=== PATIENT | male | born 1985 | race Caucasian/White ===

== ENCOUNTER → 2018-09-22 | Outpatient (CLI) | payer BC ==
--- NOTE | 2018-09-22 11:20 | CONS ---
Assessment/Plan Assessment/Plan Hospital Course (Demo Recall) 33-year-old male with anterior and anteromedial knee pain secondary to patellofemoral syndrome as well as likely a multilobulated ganglion cyst deep to the patella tendon. Advanced imaging does show that the cyst is quite impressive in size and number of septations. Given that the patient's symptoms are only when he kneels I would like to continue with conservative treatment. This will include steroid injection as well as physical therapy. If these both fail over the course of 3 months of treatment would likely repeat an MRI to see if a meniscus tear was in fact missed and potentially recommend surgery depending on symptoms and results. Plan: Submit authorization for right knee steroid injection and right knee physical therapy. Follow-up for right knee steroid injection. Consultation Date/Type/Reason Admit Date/Time Date of Consultation: Sep 22, 2018 Reason for Consultation Right knee pain Date/Time of Note DATE: 09/22/18 TIME: 11:05 Hx of Present Illness This is a 33-year-old male with a chief complaint of right knee pain. The pain began approximately 1 year ago. The patients pain is in the anterior and anteromedial aspect of the right knee. Pain is not radiating to the lower leg. The pain is rated as a 6/10 and is described as sharp and stabbing. Denies mechanical symptoms. Patient denies complaints of numbness or tingling. The pain is exacerbated by kneeling. Patient has no pain while walking or using stairs.. Pain is not relieved by NSAID's. Patient has been taking naproxen on a p.r.n. basis as well as using ice. Duration: One year Injury: No Walking tolerance: Unlimited Limp: No Support: No Swelling: Rarely Crepitation: No Instability: No Stairs: Uses normal Physical Therapy: No Injections: None NSAIDs: Naproxen Prior surgery: No Back pain: No Hip pain: No Risk of AVN : No Patient denies fever, chills, shortness of breath, chest pain, nausea/vomiting, constipation, diarrhea, numbness, and tingling. Past Medical History Medical History: no pertinent history Past Surgical History Past Surgical Hx: no surgical history Family History Significant Family History: no pertinent family hx Social History Alcohol Use: none Smoking Status: Never smoker Drug Use: none Exam/Review of Systems Exam Vitals Weight: 200 pound Height: 5 foot 8 inches Temperature: 98.2 Heart Rate: 99 Blood Pressure: 132/74 Respiratory Rate: 12 Exam General: Alert, oriented x3. No Acute Distress. Heart: Regular rate and rhythm. Lungs: No respiratory distress. No accessory muscle use. Musculoskeletal: Right Knee This is a well developed male who is alert, oriented times three and in no apparent distress. Skin is intact over the right knee as well as the lower extremity with no abrasions, lacerations, or ulcerations. Observation of the patient's gait reveals a non- antalgic gait with No thrust. Frontal plane alignment is neutral. There is mild pain on palpation over the anterior joint line under the patella tendon and the medial joint line. No joint effusion. Range of motion: 0 extension to approximately 140 degrees of flexion. Collateral ligament testing reveals no instability with varus or valgus stress at 0 and 30 degrees of flexion. Negative Leela's and negative posterior drawer. Neurovascularly intact with 5/5 EHL/tibialis anterior/gastroc. Sensation intact to light touch in a sural, saphenous, deep peroneal, superficial peroneal, medial and lateral plantar nerve distribution. Palpable, symmetric dorsalis pedis and posterior tibial pulses in both lower extremities. Hip examination normal. Imaging Imaging The patient received a standard set of films today that were personally reviewed. Imaging included a standing bilateral knee AP, PA flexion, merchant views and a dedicated lateral of the affected knee: There is neutral alignment of the knee. There is no loss of joint space in any compartment(s). 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 Mild patella marly. On the merchant view the patella is slightly subluxated laterally. No acute abnormalities. MRI of the right knee dated 07/30/2018 was personally reviewed. There is an impressive multilobulated with more than a dozen ganglionic cystic lesions in the anterior Hoffa fat pad just deep to the patella tendon. There is no discrete or obvious meniscus tear. Patellar tendon is intact. Cruciates are intact. Collateral ligaments are intact. There is no significant joint effusion. DANIELITO JOHNS MD Sep 22, 2018 11:18
--- NOTE | 2018-09-22 12:23 | RADRPT ---
PROCEDURE: XR right knee and XR left knee. CLINICAL INDICATION: Bilateral knee pain TECHNIQUE: 4 images of the left knee and 4 images of the right knee are available for review. COMPARISON: None available FINDINGS: Right knee: There is no acute fracture. There is suggestion of slight patella marly. Joint spaces are preserved. The soft tissues are grossly unremarkable. Left knee: There is no acute fracture. There is suggestion of slight patella marly. Joint spaces are preserved. Soft tissues are grossly unremarkable. IMPRESSION: 1. No radiographic evidence of acute osseous abnormality or significant degenerative changes. 2. Suggestion of slight bilateral some patella marly. RPTAT: [facility] .Efrain Saldivar MD, MD Date Time Electronically viewed and signed by .Efrain Saldivar MD, on 09/22/2018 12:22 .K/
== END | disposition home or self-care (01) ==
LOC: HKI 09:30
PROVIDERS: ATTEND Orthopaedic Surgery Adult Reconstructive Orthopaedic Surgery
DX: M25.561 Pain in right knee (principal)
CPT/HCPCS: 73564; Z7500; G0463

== ENCOUNTER → 2018-10-08 | Outpatient (CLI) | payer BC ==
--- NOTE | 2018-10-08 13:10 | CONS ---
Consult Date/Type/Reason Admit Date/Time Initial Consult Date Date/Time of Note DATE: 10/08/18 TIME: 13:04 Subjective 33-year-old male follows up today for steroid injection right knee. Last visit he was found to have a multilobulated ganglion cyst deep to the patella tendon. His symptoms are unchanged. Objective Exam General: Awake, alert, in no acute distress, pleasant and cooperative Heart: regular rhythm Lungs: breathing comfortably, no tachypnea or dyspnea MUSCULOSKELETAL: Right lower extremity: Skin intact. No erythema. Sensation intact to light touch in a sural, saphenous, deep peroneal, superficial peroneal, medial and lateral plantar nerve distribution. Motor is intact, patient able to dorsiflex and plantarflex ankle and extend and flex great toe. Dorsalis Pedis pulse +2, Brisk capillary refill. Compartments are soft. Calves non-tender to palpation bilaterally. Assessment/Plan Hospital Course (Demo Recall) 33-year-old male with painful multilobulated ganglion cyst deep to the patella tendon in the Hoffa fat pad. Today he is getting a steroid injection in the hope that this will decrease the inflammation and hopefully resorb the cysts. He is also to start physical therapy. If this fails we will likely repeat MRI in 3 months to determine any changes and possible other pathology that was missed on initial MRI. Follow-up 3 months Assessment/Plan (Daily) Right knee steroid injection procedure: Risks and benefits of steroid injection reviewed with patient. The risks include infection, failure, pain, swelling, nerve/tendon/ligament damage. The patient verbalized understanding and verbal consent was obtained prior to procedure. The right knee was prepped in a sterile fashion with alcohol and betadine the site of injection was confirmed. Anterior medial approach was used. The skin and capsule was anesthetized with 3mL 1% lidocaine. The right knee was injected with 2mL 1% lidocaine, 2mL 0.25% bupivacaine, 40mg Depo-Medrol. Injection flowed freely. Good hemostasis was achieved and no complications noted. The patient tolerated the procedure well. Limit activity and ice for 24-48 hours DANIELITO JOHNS MD Oct 08, 2018 13:10
== END | disposition home or self-care (01) ==
LOC: HKI 09:50
PROVIDERS: ATTEND Orthopaedic Surgery Adult Reconstructive Orthopaedic Surgery
DX: M67.461 Ganglion, right knee (principal)
CPT/HCPCS: 20610; Z7500; Z7610; G0463